=== PATIENT | female | born 1985 | race Caucasian/White ===

== ENCOUNTER 2018-09-08 13:53 | Observation (INO) | payer MEDICAID ==
[~2018-09-08] VITALS: Ht 165.1 cm; Wt 89.8 kg
[2018-09-08] MEDS ORDERED: PNV1TABL50 MT (14:23)
== END 2018-09-08 16:20 | disposition home or self-care (01) ==
LOC: 8 EST LDRP 13:53
PROVIDERS: ADMIT Obstetrics & Gynecology; ATTEND Obstetrics & Gynecology
DX: O36.8130 Decreased fetal movements, third trimester, not applicable or unspecified (principal); Z3A.32 32 weeks gestation of pregnancy
CPT/HCPCS: 76815; 76818; 99281; G0378